=== PATIENT | female | born 1930 | race Caucasian/White ===

== ENCOUNTER 2016-05-06 05:35 | Inpatient (IN) | payer OTHER ==
[~2016-05-06] VITALS: Ht 162.6 cm; Wt 83.9 kg
[2016-05-06] MEDS ORDERED: GLIP10TA11 PO (06:43)
[2016-05-06] MEDS ORDERED: MELO15TA13 PO (06:43)
[2016-05-06] MEDS ORDERED: LOVA40TA75 PO (06:43)
[2016-05-06] MEDS ORDERED: LISI10TA5 PO (06:43)
[2016-05-06] MEDS ORDERED: GLU500 PO (06:43)
[2016-05-06] MEDS ORDERED: METO25TA6 PO (06:43)
[2016-05-06] MEDS ORDERED: LR 1,000 ML IV SCH (08:39)
[2016-05-06] MEDS ORDERED: MORPHINE 4 MG/ML INJ. SYRINGE IVP PRN ×3 (08:45)
[2016-05-06] MEDS ORDERED: METOCLOPRAMIDE HCL 10 MG/2 ML VIAL IVP PRN (08:45)
[2016-05-06 11:05] VITALS: BP 128/71; PULSE 68; PULSE 70; RESP 18; TEMP 98.2; TEMP 98.5; O2SAT 95
--- NOTE | 2016-05-06 11:05 | NUR ---
post op admission: received report from jd at bedside,patient in the room.post op vital signs taken,afebrile. daughter at bedside. mid abdominal incision dry and intact.with binder on.on o2 3l/nc,good saturation. suh draining to clear urine. with bilateral ilya draining to reddish color. continue to monitor.
[2016-05-06] MEDS ORDERED: HYDROcodone/ACETAMIN 5-325 MG TAB (NORCO/ VICODIN) PO PRN (11:15)
[2016-05-06] MEDS ORDERED: HYDROmorphone 1 MG INJ. 1 MG/ML AMPUL IVP PRN (11:15)
--- NOTE | 2016-05-06 12:00 | NUR ---
ROUNDS: HAD SIPS OF WATER. TOLERATED.
[2016-05-06] MEDS: CEFAZOLIN 1 GM IVPB PREMIX 50 ML IV SCH ×2 (13:15→21:39)
--- NOTE | 2016-05-06 14:00 | NUR ---
ROUNDS: RESTING. NO COMPLAINED MADE. CALL LIGHT WITH IN REACH.
--- NOTE | 2016-05-06 16:00 | NUR ---
ROUNDS; STABLE. NO ACTIVE BLEEDING NOTED FROM THE MID ABD INCISION.ABDOMINAL BINDER ON AT ALL TIMES.
[2016-05-06] MEDS: D5/0.45 NS 1,000 ML IV SCH (17:15)
[2016-05-06] MEDS: ACETAMINOPHEN 325 MG TABLET PO PRN (17:16)
[2016-05-06 17:28] VITALS: BP 122/76; PULSE 84; RESP 18; TEMP 97; O2SAT 95
[2016-05-06 17:31] VITALS: BP 122/76; PULSE 76
--- NOTE | 2016-05-06 18:30 | NUR ---
CLOSING NOTES: EMPTIED BOTH FRANKIE DRAINS AND RECORDED. MID ABD INCISION,DRESSING DRY AND INTACT,BINDER ON .ALVAREZ IN SITU.CALL LIGHT WITH IN REACH. STABLE.
--- NOTE | 2016-05-06 19:35 | NUR ---
INITIAL NOTE Patient resting on the bed. Denied of pain. Respiration even and unlabored. No acute distress. AO x 4. Skin warm and dry to touch. IV intact to left wrist, no redness, no swelling, no drainage. On D5 1/2NS at 100ml/hr, infusing well. F/C intact, drain gravity with yellow urine. Bilateral FRANKIE drains intact to abdomen area, mid abdomen incision intact with clean and dry dressing. Abdomen binder in placed. Discussed the safety issue, use call light when need help, use incentive spirometry when awake, and plan of care, verbally understanding. Safety measure maintained. Call light within reached. Bed in low position, bed alarm on, side rails up. Will continue to monitor.
[2016-05-06 19:55] VITALS: BP 141/76; PULSE 92; RESP 18; TEMP 98.1; O2SAT 95
--- NOTE | 2016-05-06 21:45 | NUR ---
ROUND Patient resting on the bed comfortable. No acute distress. Respiration even and unlabored. Safety measure maintained. Call light within reached. Bed in low position, bed alarm on, side rails up. Will continue to monitor.
--- NOTE | 2016-05-06 23:30 | NUR ---
ROUND Patient resting on the bed with eyes closed. Respiration even and unlabored. No acute distress. Safety measure maintained. Bed in low position, bed alarm on, side rails up. Call light within reached. Continue to monitor.
[2016-05-07] MEDS: ACETAMINOPHEN 325 MG TABLET PO PRN (00:13)
--- NOTE | 2016-05-07 00:13 | NUR ---
TYLENOL GIVEN Patient c/o back pain 05/09, Tylenol 650mg PO given as ordered. No acute distress. Safety measure maintained. Call light within reached. Continue to monitor.
[2016-05-07 00:29] VITALS: BP 141/75; PULSE 94; RESP 16; TEMP 97.8; O2SAT 96
--- NOTE | 2016-05-07 01:45 | NUR ---
ROUND Patient resting on the bed with eyes closed. No acute distress. Bed in low position, bed alarm on, side rails up. Call light within reached. Continue to monitor.
--- NOTE | 2016-05-07 03:10 | NUR ---
ROUND Patient resting on the bed with eyes closed. No acute distress. Safety measure maintained. Call light within reached. Continue to monitor.
[2016-05-07] MEDS: D5/0.45 NS 1,000 ML IV SCH ×3 (03:53→23:59)
[2016-05-07 04:25] VITALS: BP 121/65; PULSE 85; RESP 18; TEMP 98.4; O2SAT 95
--- NOTE | 2016-05-07 05:00 | NUR ---
ROUND Patient resting on the bed comfortable. Respiration even and unlabored. No acute distress. Safety measure maintained. Call light within reached. Continue to monitor.
--- NOTE | 2016-05-07 06:45 | NUR ---
CLOSING NOTE Patient resting on the bed. Respiration even and unlabored. No acute distress. Skin warm and dry to touch. IV intact to left wrist, no redness, no swelling, IVF infusing well. F/C intact, drain gravity with yellow urine. Bilateral FRANKIE drains intact to abdomen area, mid abdomen incision intact with clean and dry dressing. Abdomen binder in placed. All needs met. Hourly rounding during shift. Safety measure maintained. Call light within reached. Bed in low position, bed alarm on, side rails up. Will endorse to morning shift nurse.
[2016-05-07 06:54] LABS: ALANINE AMINOTRANSFERASE 16 U/L (12-78); ANION GAP 5 (5-15); ASPARTATE AMINOTRANSFERASE 13 U/L (10-37); CHLORIDE 100 mmol/L (98-107); CREATININE 1.06 mg/dL (0.55-1.30); GLUCOSE 180 mg/dL (70-99); POTASSIUM 4.3 mmol/L (3.5-5.1); SODIUM SERUM 133 mmol/L (136-145); TOTAL BILIRUBIN 0.5 mg/dL (0.0-1.0); TOTAL PROTEIN, SERUM 6.2 g/dL (6.4-8.3); UREA NITROGEN, BLOOD 18 mg/dL (8-21)
--- NOTE | 2016-05-07 07:10 | NUR ---
RECEIVED THE CALL FROM DR. TURCIOS, REINALDO Received the call from Dr. Turcios with order D/C F/C and advance diet to mechanical soft. Order read back and okay to MD. Reported to MD patient only c/o back pain last night, Tylenol 650mg PO given. Left FRANKIE drain 40ml, and right FRANKIE drain 10ml with red color output during head transfer clerk. MD stated that the goal is discharge home today. will endorse to morning shift nurse.
--- NOTE | 2016-05-07 07:35 | NUR ---
am rounds: received pt in the bed. awake,alert and oriented x4. ivf on going at left wrist intact.on o2 2l/nc.good saturation. with abdominal incision dressing dry and intact,abdominal binder on at all times. with bilateral ilya drains to moderate reddish color.call light with in reach. needs attended to.
--- NOTE | 2016-05-07 07:46 | NUR ---
Nutrition Update Irvin Scale 18 noted. Pt admitted for ventral hernia without obstruction or gangrene. Diet: CCHO, mechanical soft BMI: 31.8 kg/m2 RD to follow per nutrition care standards.
[2016-05-07 08:03] VITALS: BP 147/83; PULSE 85; RESP 20; TEMP 99.2; O2SAT 93
[2016-05-07] MEDS: ONDANSETRON HCL 4 MG/2 ML VIAL IVP PRN ×4 (08:10→21:05)
--- NOTE | 2016-05-07 08:15 | NUR ---
NAUSEA: C/O NAUSEA AND VOMITING AND DUE IV ZOFRAN GIVEN PER REQUEST.
--- NOTE | 2016-05-07 08:18 | NUR ---
KIM: WHIT ALVAREZ ORDERED.
[2016-05-07] MEDS ORDERED: MELOXICAM 7.5 MG TABLET PO SCH (09:00)
[2016-05-07] MEDS ORDERED: METOPROLOL TARTRATE 25 MG TABLET PO ONE (10:30)
[2016-05-07] MEDS ORDERED: metFORMIN HCL 500 MG TABLET PO ONE (10:30)
[2016-05-07] MEDS ORDERED: MELOXICAM 7.5 MG TABLET PO ONE (10:30)
[2016-05-07] MEDS ORDERED: LISINOPRIL 10 MG TABLET (PRINIVIL) PO ONE (10:30)
[2016-05-07] MEDS ORDERED: GLUCOSE 15 GM GEL (in 37.5 GM TUBE) PO PRN ×2 (11:30)
[2016-05-07] MEDS ORDERED: DEXTROSE 50%-WATER 50 ML DISP.SYRIN IVP PRN ×2 (11:30)
[2016-05-07] MEDS: METOPROLOL TARTRATE 25 MG TABLET PO SCH (11:31)
--- NOTE | 2016-05-07 11:35 | NUR ---
blood sugar: blood sugar taken,insulin to follow per sliding scale.
--- NOTE | 2016-05-07 11:35 | NUR ---
rn notes: insulin not given,patient vomited,not able to take on food.
[2016-05-07 12:47] VITALS: BP 145/81; PULSE 59; RESP 19; TEMP 97.9; O2SAT 95
[2016-05-07] MEDS: KETOROLAC TROMETHAMINE 15 MG VIAL IVP PRN ×2 (13:11→21:50)
--- NOTE | 2016-05-07 13:16 | NUR ---
pain meds: complained of lower back pain and due iv pain meds given per request.zofran iv given prior to pain meds.
--- NOTE | 2016-05-07 13:30 | NUR ---
VOID: VOIDED AFTER ALVAREZ REMOVED.
[2016-05-07] MEDS ORDERED: NS IRRIG SOLN 1000 ML IR ONE (14:00)
[2016-05-07] MEDS ORDERED: NEOSTIGMINE METHYLSULFATE 1 MG/ML, 10 ML VIAL ONE (14:00)
[2016-05-07] MEDS ORDERED: fentaNYL CITRATE 250 MCG/5 ML AMP ONE (14:00)
[2016-05-07] MEDS ORDERED: KETOROLAC TROMETHAMINE 30 MG VIAL ONE (14:00)
[2016-05-07] MEDS ORDERED: ROCURONIUM BROMIDE 10 MG/ML (ZEMURON) ONE (14:00)
[2016-05-07] MEDS ORDERED: MIDAZOLAM HCL 5 MG/5 ML VIAL ONE (14:00)
[2016-05-07] MEDS ORDERED: CEFAZOLIN 2 GM IVPB PREMIX 50 ML IV ONE (14:00)
[2016-05-07] MEDS ORDERED: NORMAL SALINE 10 ML VIAL ONE (14:00)
[2016-05-07] MEDS ORDERED: LR 1,000 ML IV.SOLN IV ONE (14:00)
[2016-05-07] MEDS ORDERED: GLYCOPYRROLATE 0.2 MG/ML VIAL ONE (14:00)
[2016-05-07] MEDS ORDERED: BUPIVACAINE LIPOSOME/PF 266 MG/20 ML VIAL INFIL ONE (14:00)
[2016-05-07] MEDS ORDERED: SEVOFLURANE 15 MIN GAS INH ONE (14:00)
[2016-05-07] MEDS ORDERED: PROPOFOL 200MG/ 20ML VIAL (DIPRIVAN) IV ONE (14:00)
[2016-05-07] MEDS ORDERED: ONDANSETRON HCL 4 MG/2 ML VIAL ONE (14:00)
--- NOTE | 2016-05-07 14:27 | NUR ---
rounds: sleeping during rounds. stable. daughter at bedside.
--- NOTE | 2016-05-07 15:25 | NUR ---
PHYSICAL THERAPY CO-SIGN The Physical Therapy Progress Notes documented by Supervisor Sawmill have been reviewed. I CONCUR W/FLOWER GRADER; CONT PER TX PLAN Reviewed/Co-Signed by: Grecia Lucia PT Documentation Done by: CHANDRA MONET FLOWER GRADER Addendum: 05/07/16 at 1527 by Grecia Lucia PT Amended: Links added.
[2016-05-07 16:25] VITALS: BP 136/80; PULSE 79; RESP 19; TEMP 97.8; O2SAT 92
--- NOTE | 2016-05-07 16:42 | NUR ---
vomits: pt coughing,had moderate amount brownish liquidy.
--- NOTE | 2016-05-07 17:00 | NUR ---
blood sugar: blood sugar taken,no insulin coverage,patient can not tolerate food.
--- NOTE | 2016-05-07 17:05 | NUR ---
surgeon paged: called dr stock for patient had another vomits brownish color liquidy with phlegm after coughing.left message c/o exchange,with orders for kub and cbc stat.
[2016-05-07] MEDS ORDERED: metFORMIN HCL 500 MG TABLET PO SCH (18:00)
[2016-05-07] MEDS: LOVASTATIN 20 MG TABLET PO SCH (18:00)
--- NOTE | 2016-05-07 18:00 | NUR ---
surgeon paged: spoke wtih dr stock and relayed kub results,start slowly on clear liquids.
[2016-05-07 18:01] LABS: BASOPHILS % (AUTO) 0.2 % (0.0-2.0); EOSINOPHILS % (AUTO) 0.2 % (0.0-4.0); HEMATOCRIT 31.4 % (36-48); HEMOGLOBIN 10.6 g/dL (12.0-16.0); LYMPHOCYTES # (AUTO) 0.9 K/uL (1.0-5.5); LYMPHOCYTES % (AUTO) 5.4 % (20.5-51.5); MEAN CORPUSCULAR HEMOGLOBIN 30 pg (27-31); MEAN CORPUSCULAR HGB CONC 34 % (32-36); MEAN CORPUSCULAR VOLUME 87 fL (79.0-98.0); MONOCYTES # (AUTO) 0.9 K/uL (0.0-1.0); MONOCYTES % (AUTO) 5.7 % (1.7-9.3); NEUTROPHILS # (AUTO) 14.1 K/uL (1.8-7.7); NEUTROPHILS % (AUTO) 88.5 % (40.0-70.0); PLATELET COUNT (AUTO) 223 K/uL (130-430); RED CELL DISTRIBUTION WIDTH 13.5 % (9.0-15.0); WHITE BLOOD COUNT (AUTO) 15.9 K/uL (4.8-10.8)
--- NOTE | 2016-05-07 19:00 | NUR ---
closing notes: patient stable and with mild nausea noted. daughter at bedside. call light with in reach.continue to monitor.
--- NOTE | 2016-05-07 19:25 | NUR ---
INITIAL NOTE Patient resting on the bed. Denied of pain. Respiration even and unlabored. No acute distress. AO x 4. Skin warm and dry to touch. IV intact to left wrist, no redness, no swelling, no drainage. On D5 1/2NS at 100ml/hr, infusing well. Bilateral FRANKIE drains intact to abdomen area, mid abdomen incision intact with clean and dry dressing. Abdomen binder in placed. Daughter at bedside. Discussed the safety issue, use call light when need help, use incentive spirometry when awake, and plan of care, verbally understanding. Safety measure maintained. Call light within reached. Bed in low position, bed alarm on, side rails up. Will continue to monitor.
[2016-05-07 20:00] VITALS: BP 154/94; PULSE 89; RESP 20; TEMP 97.4; O2SAT 92
--- NOTE | 2016-05-07 20:10 | NUR ---
ASSISTED PATIENT SIT ON THE CHAIR Per patient requested to sit on the chair. Assisted patient to sit on the chair at bedside. No acute distress. Respiration even and unlabored. Safety measure maintained. Call light within reached. Daughter at bedside. Continue to monitor.
[2016-05-07] MEDS: INSULIN REGULAR, HUMAN 100 UNITS/ML, 10 ML VIAL (novoLIN R) SUBCUT PRN (20:49)
--- NOTE | 2016-05-07 21:05 | NUR ---
ZOFRAN GIVEN Patient vomited with brownish color emesis. Zofran 4mg IVP given as ordered. No acute distress. Patient still sitting on the chair. Ice chip provided. Safety measure maintained. Call light within reached. Will continue to monitor.
--- NOTE | 2016-05-07 21:50 | NUR ---
TORADOL GIVEN Patient c/o back pain 08/09, Toradol 15mg IVP given as ordered. No acute distress. Assisted patient back to bed. Call light within reached. Bed in low position, bed alarm on, side rails up. Continue to monitor.
--- NOTE | 2016-05-07 23:40 | NUR ---
ROUND Patient resting on the bed with eyes closed. No acute distress. Respiration even and unlabored. Safety measure maintained. Call light within reached. Continue to monitor.
[2016-05-08] VITALS (7 sets, daily range): BP systolic 117–170; BP diastolic 53–85; PULSE 77–113; RESP 17–20; TEMP 96.9–97.7; O2SAT 91–96
--- NOTE | 2016-05-08 01:44 | NUR ---
ROUND Patient sleeping at this time. No acute distress. Respiration even and unlabored. Safety measure maintained. Bed in low position, bed alarm on, side rails up. Call light within reached. Continue to monitor.
--- NOTE | 2016-05-08 03:20 | NUR ---
ROUND Patient sleeping comfortable. No acute distress. Respiration even and unlabored. Safety measure maintained. Bed in low position, bed alarm on, side rails up. Call light within reached. Continue to monitor.
--- NOTE | 2016-05-08 05:00 | NUR ---
ROUND Patient resting on the bed with eyes closed. No acute distress. Respiration even and unlabored. Safety measure maintained. Bed in low position, bed alarm on, side rails up. Call light within reached. Continue to monitor.
--- NOTE | 2016-05-08 06:59 | NUR ---
CLOSING NOTE Patient resting on the bed. Respiration even and unlabored. No acute distress. IV intact to left wrist, no redness, no swelling, IVF infusing well. Bilateral FRANKIE drains intact to abdomen area, mid abdomen incision intact with clean and dry dressing. Abdomen binder in placed. Assisted to use bedpan during shift. All needs met. Hourly rounding during shift. Safety measure maintained. Call light within reached. Bed in low position, bed alarm on, side rails up. Will endorse to morning shift nurse.
--- NOTE | 2016-05-08 07:30 | NUR ---
rn notes: patient is aaox 4. afebrile. vss stable. lungs bilaterally diminished at the bases. abdomen soft has dressing on it. dry/intact. no bleeding noted. has j p drain right and left with drainage serosanguinous noted. has iv access on the left forearm #20.D51/2Ns at 100cc/hr infusing on well. call lights within reach. safety measures maintained. bed in low position. informed patient to call for assistance. has abdominal binder with abdominal dressing in placed. dry/intact. no bleeding noted.
--- NOTE | 2016-05-08 08:00 | NUR ---
patient is stable. no pain noted.
[2016-05-08] MEDS: METOPROLOL TARTRATE 25 MG TABLET PO SCH (09:00)
[2016-05-08] MEDS: ONDANSETRON HCL 4 MG/2 ML VIAL IVP PRN (09:03)
--- NOTE | 2016-05-08 09:15 | NUR ---
due medication given at this time.made comfortable.
[2016-05-08] MEDS ORDERED: MAG-AL HYDROX/SIMETH 30 ML UDC PO ONE (10:00)
--- NOTE | 2016-05-08 10:00 | NUR ---
rt j p drain emptied 10cc and the left ilya drain 20cc serosanguinous noted.
[2016-05-08] MEDS: PANTOPRAZOLE SODIUM 40 MG/VIAL (PROTONIX) IVP SCH (10:07)
[2016-05-08] MEDS: LISINOPRIL 10 MG TABLET (PRINIVIL) PO SCH (10:09)
[2016-05-08] MEDS: D5/0.45 NS 1,000 ML IV SCH ×2 (10:10→20:51)
[2016-05-08] MEDS: MELOXICAM 7.5 MG TABLET PO SCH (10:10)
[2016-05-08] MEDS: INSULIN REGULAR, HUMAN 100 UNITS/ML, 10 ML VIAL (novoLIN R) SUBCUT PRN ×3 (11:44→21:44)
[2016-05-08] MEDS ORDERED: METOPROLOL TARTRATE 25 MG TABLET PO ONE (11:45)
--- NOTE | 2016-05-08 12:00 | NUR ---
latest bs is 228mg/dl. coverage given at this time. eat like 5-10 of food on the tray
--- NOTE | 2016-05-08 12:00 | NUR ---
sitting on the chair. no nausea noted. no pain noted.
--- NOTE | 2016-05-08 14:00 | NUR ---
patient is stable. no pain nor nausea noted.
--- NOTE | 2016-05-08 15:00 | NUR ---
PHYSICAL THERAPY CO-SIGN The Physical Therapy Progress Notes documented by Power Shovel Mechanic have been reviewed. Reviewed/Co-Signed by: Mitzy Chen, PT Documentation Done by: Syed Kim PTA I concur with the documentation of this CONSULTING SOFTWARE ENGINEER. Plan: continue PT as per plan of care. Addendum: 05/09/16 at 0858 by Mitzy Chen PT Amended: Links added.
--- NOTE | 2016-05-08 15:25 | NUR ---
patient is asleep at this time.no nausea nor vomitting noted. family is at the bedside.
--- NOTE | 2016-05-08 17:30 | NUR ---
latest bs is 140mg/dl. no coverage given at this time.
[2016-05-08] MEDS: LOVASTATIN 20 MG TABLET PO SCH (17:32)
--- NOTE | 2016-05-08 18:00 | NUR ---
refused to have mevacor tablet.
[2016-05-08] MEDS: KETOROLAC TROMETHAMINE 15 MG VIAL IVP PRN (18:41)
--- NOTE | 2016-05-08 18:41 | NUR ---
complained of back pain. toradol 15mg iv given. made comfortable.
--- NOTE | 2016-05-08 19:00 | NUR ---
abdominal dressing with abdominal binder dry and intact. bed in low position. patient is asleep. nor pain nor distress noted.
--- NOTE | 2016-05-08 19:32 | NUR ---
sbar report given to incoming nurse Isamar SUAREZ
--- NOTE | 2016-05-08 20:00 | NUR ---
PM Shift Assessment Received patient lying in bed, AAO x4, no acute distress noted, family is at the bedside. Assessment complete, vital signs stable, patient states pain is tolerable at this time. Pain management education provided, patient verbalized understanding. IV noted to left wrist, IV fluids infusing well, no redness or swelling noted to IV site. Abdominal dressing noted with abdominal binder in place. FRANKIE drain noted on right and another on left, both with scant serosanguineous drainage noted. Bedside commode noted at the bedside, instructed patient to call for assistance out of bed when she needs to get up, she verbalized understanding. Incentive spirometer noted at the bedside, education provided on the importance of use 10x/hour while awake, patient verbalized understanding and is able to demonstrate correct use up to 750mL of inspired air. Plan of care discussed with patient and daughter at the bedside, they verbalized understanding. Patient is verbally able to make needs known and encouraged to do so. Call light is within reach, all fall and safety precautions in place, will continue to monitor for change in patient status.
--- NOTE | 2016-05-08 22:09 | NUR ---
RN Rounds Patient is resting quietly in bed, no acute distress noted. Patient states pain is tolerable at this time. Dr Turcios at the bedside earlier. Blood sugar was assessed, patient refused insulin at this time, states she did not eat to much today, refused bedtime snack at this time. Reminded to call for assistance as needed, she verbalized understanding. Call light is within reach, all fall and safety precautions in place, will continue to monitor.
[2016-05-09] VITALS (7 sets, daily range): BP systolic 128–188; BP diastolic 64–85; PULSE 70–92; RESP 16–18; TEMP 97.4–98.9; O2SAT 92–95; Ht 162.6 cm; Wt 83.9 kg
--- NOTE | 2016-05-09 00:13 | NUR ---
RN Rounds Patient is sleeping but easily arousable, no acute distress noted. IV fluids infusing well. Call light is within reach, all fall and safety precautions in place, will continue to monitor.
--- NOTE | 2016-05-09 02:27 | NUR ---
RN Rounds Patient is sleeping, respirations are even and unlabored, no acute distress noted. No non-verbal signs of pain noted at this time. Call light is within reach, all fall and safety precautions in place, will continue to monitor.
--- NOTE | 2016-05-09 04:35 | NUR ---
RN Rounds Patient is resting quietly in bed, no acute distress noted. Assisted up to bedside commode and safely back to bed. IV fluids infusing well. Call light is within reach, all fall and safety precautions in place, will continue to monitor.
[2016-05-09] MEDS: D5/0.45 NS 1,000 ML IV SCH (06:10)
[2016-05-09] MEDS: INSULIN REGULAR, HUMAN 100 UNITS/ML, 10 ML VIAL (novoLIN R) SUBCUT PRN ×3 (06:13→17:05)
[2016-05-09 06:36] LABS: ANION GAP 3 (5-15); CHLORIDE 101 mmol/L (98-107); CREATININE 0.93 mg/dL (0.55-1.30); GLUCOSE 176 mg/dL (70-99); POTASSIUM 3.8 mmol/L (3.5-5.1); SODIUM SERUM 134 mmol/L (136-145); UREA NITROGEN, BLOOD 11 mg/dL (8-21)
[2016-05-09 06:38] LABS: BASOPHILS % (AUTO) 0.3 % (0.0-2.0); EOSINOPHILS # (AUTO) 0.5 K/uL (0.0-0.4); EOSINOPHILS % (AUTO) 5.1 % (0.0-4.0); HEMATOCRIT 28.5 % (36-48); HEMOGLOBIN 9.4 g/dL (12.0-16.0); LYMPHOCYTES # (AUTO) 1.4 K/uL (1.0-5.5); LYMPHOCYTES % (AUTO) 14.3 % (20.5-51.5); MEAN CORPUSCULAR HEMOGLOBIN 29 pg (27-31); MEAN CORPUSCULAR HGB CONC 33 % (32-36); MEAN CORPUSCULAR VOLUME 87 fL (79.0-98.0); MONOCYTES # (AUTO) 0.9 K/uL (0.0-1.0); MONOCYTES % (AUTO) 9.1 % (1.7-9.3); NEUTROPHILS # (AUTO) 6.7 K/uL (1.8-7.7); NEUTROPHILS % (AUTO) 71.2 % (40.0-70.0); PLATELET COUNT (AUTO) 198 K/uL (130-430); RED BLOOD CELL COUNT(AUTO) 3.28 MIL/uL (4.2-6.2); RED CELL DISTRIBUTION WIDTH 13.5 % (9.0-15.0); WHITE BLOOD COUNT (AUTO) 9.5 K/uL (4.8-10.8)
--- NOTE | 2016-05-09 07:19 | NUR ---
Closing Notes Patient is resting quietly in bed, no acute distress noted. No complain of pain or nausea throughout shift. Blood sugar was assessed and insulin provided per sliding scale. Maintained bulb suction throughout shift to right and left abdominal FRANKIE drains. Patient is stable, all needs met throughout shift. SBAR report was endorsed to AM nurse at bedside.
--- NOTE | 2016-05-09 07:30 | NUR ---
rn notes: patient is aaox 4. afebrile. vss stable. lungs bilaterally diminished at the bases. abdomen soft non distended. has abdominal dressing dry/intact. has adamaris christina rt and left draining serosanguinous noted. has iv access on the left forearm #20 [id number] at 100c/hr infusing on well. no pain nor distress noted. call lights within reach. safety measures maintained. informed patient to call for assistance. bed in low position. has bedside commode.
--- NOTE | 2016-05-09 08:57 | NUR ---
CALLED ALISSA, COFFEE TASTER IS EITHER DR JENSEN OR DR BURKETT, RE: HEARTBURN RELIEF. SPOKE TO JOANNA
[2016-05-09] MEDS ORDERED: MAG-AL HYDROX/SIMETH 30 ML UDC PO PRN (09:15)
--- NOTE | 2016-05-09 09:17 | NUR ---
Dr Stockton called back ordered Jeremy po give one now.
[2016-05-09] MEDS: PANTOPRAZOLE SODIUM 40 MG/VIAL (PROTONIX) IVP SCH (09:28)
[2016-05-09] MEDS: LISINOPRIL 10 MG TABLET (PRINIVIL) PO SCH (09:29)
[2016-05-09] MEDS ORDERED: METOPROLOL TARTRATE 25 MG TABLET PO ONE (09:30)
[2016-05-09] MEDS: MELOXICAM 7.5 MG TABLET PO SCH (09:30)
--- NOTE | 2016-05-09 09:30 | NUR ---
due medication given at this time. made comfortable. hob elevated.
[2016-05-09] MEDS ORDERED: PANTOPRAZOLE SODIUM 40 MG TAB PO ONE (10:00)
--- NOTE | 2016-05-09 10:09 | NUR ---
spoke with pt at bedside.she is alert, indep for adls. taking orals. pain controlled. plan home today with family. lives with extended family. will follow up with Dr Turcios next week. javy bishop/catherine/farhad hcp [phone]
--- NOTE | 2016-05-09 12:15 | NUR ---
PHYSICAL THERAPY CO-SIGN The Physical Therapy Progress Notes documented by Cuff Presser have been reviewed. Reviewed/Co-Signed by: Mitzy Chen PT Documentation Done by: Syed Kim PTA I concur with the documentation of this PARTICLEBOARD FACTORY WORKER. Plan: continue P.T. as per plan of care. Addendum: 05/09/16 at 1330 by Mitzy Chen PT Amended: Links added.
--- NOTE | 2016-05-09 12:27 | NUR ---
latest bs is 199mg/dl. coverage given. made comfortable. protonix 40 gm po and maalox po given. verbalized will gonna be okay. thanks.
[2016-05-09] MEDS ORDERED: BISACODYL 10 MG/SUPPOSITORY RC ONE (14:45)
--- NOTE | 2016-05-09 15:45 | NUR ---
spoke to Dr Espinosa regarding discharge today/tonite.its okay. verbalized continue previous home medication.
[2016-05-09] MEDS ORDERED: OXYC-130 PO (15:57)
[2016-05-09] MEDS ORDERED: DOCU-144 PO (15:58)
--- NOTE | 2016-05-09 17:02 | NUR ---
latest bs is 145 mg/dl. no coverage given at this time. stable no pain. on the bedside commode
--- NOTE | 2016-05-09 18:00 | NUR ---
eating piece of chicken and soup. like 20% of food consumed
--- NOTE | 2016-05-09 19:00 | NUR ---
transition care documents given to the patient. and explained each medication indication, side effects, dosages and frequency. and return follow up with dr Turcios next week. and [facility]. needs to continue home previous medication. scds id band removed. saline lock removed.
--- NOTE | 2016-05-09 19:15 | NUR ---
daughter mariluz came and supervisor opening and picking the patient. in stable condition wheeled by Lauren Smith.
[2016-05-10] MEDS ORDERED: PANTOPRAZOLE SODIUM 40 MG TAB PO SCH (09:00)
[2016-05-10] MEDS ORDERED: METOPROLOL TARTRATE 25 MG TABLET PO SCH (09:00)
--- NOTE | 2016-05-13 09:44 | NUR ---
Discharge Follow Up Phone Call HUMAN RESOURCES ADMIN phoned patient, . Patient stated she was doing fine. She had no questions or concerns. Her drain was doing well. She will attend her follow up appointment with Dr Turcios today. She has help from her family. No further follow up calls needed.
== END 2016-05-09 19:25 | disposition home or self-care (01) | DRG 354 ==
LOC: SMU 05:35 → SDS 05:35 → SMU 12:44 → SDS 05-07 11:03 → SMU 05-07 11:07
PROVIDERS: ADMIT Surgery; ATTEND Surgery
PROC: 0WBF0ZZ Excision of Abdominal Wall, Open Approach (ICD-10-PCS; 2016-05-06)
PROC: 0WQF0ZZ Repair Abdominal Wall, Open Approach (ICD-10-PCS; principal; 2016-05-06 07:30)
DX: K43.2 Incisional hernia without obstruction or gangrene (principal); E44.1 Mild protein-calorie malnutrition; E11.22 Type 2 diabetes mellitus with diabetic chronic kidney disease; N18.2 Chronic kidney disease, stage 2 (mild); I12.9 Hypertensive chronic kidney disease with stage 1 through stage 4 chronic kidney disease, or unspecified chronic kidney disease; E78.5 Hyperlipidemia, unspecified; E03.9 Hypothyroidism, unspecified; M46.00 Spinal enthesopathy, site unspecified; H91.90 Unspecified hearing loss, unspecified ear; Z96.659 Presence of unspecified artificial knee joint; Z90.49 Acquired absence of other specified parts of digestive tract; Z98.49 Cataract extraction status, unspecified eye; Z82.3 Family history of stroke; Z83.3 Family history of diabetes mellitus; Z80.1 Family history of malignant neoplasm of trachea, bronchus and lung; Z78.9 Other specified health status; Z68.31 Body mass index [BMI] 31.0-31.9, adult
CPT/HCPCS: 36415; 74000-TC; 80048; 80053; 82962; 83735-TC; 85025; 87081; 88302; 94010; 94760; 97110-GP; 97116-GP; 97530-GP; C9113; C9290; J0690; J1815; J1885; J2250; J2405; J2704; J2710; J3010; J3490; J7120

== ENCOUNTER 2016-05-28 15:15 | Inpatient (IN) | payer OTHER ==
[2016-05-09 16:13] VITALS: Ht 162.6 cm; Wt 88.0 kg
[~2016-05-28] VITALS: Ht 162.6 cm; Wt 88.0 kg
[~2016-05-28 15:15] MED LIST: DOCU-144 PO; GLIP10TA11 PO; GLU500 PO; LISI10TA5 PO; LOVA40TA75 PO; MELO15TA13 PO; METO25TA6 PO; OXYC-130 PO
--- NOTE | 2016-05-28 15:18 | NUR ---
Patient to ER bed 4 to gown for evaluation. Side rails up. Report given to Yue SUAREZ.
[2016-05-28 15:20] VITALS: BP 115/70; PULSE 138; RESP 20; TEMP 97.7; O2SAT 96
[2016-05-28] MEDS ORDERED: NACL 0.9% 1,000 ML IV SCH (15:30)
--- NOTE | 2016-05-28 15:32 | NUR ---
ER MD Yeung at bedside for evaluation
[2016-05-28] MEDS ORDERED: ONDANSETRON HCL 4 MG/2 ML VIAL IVP ONE (15:45)
[2016-05-28] MEDS ORDERED: MELO15TA13 PO (15:45)
[2016-05-28] MEDS ORDERED: KETOROLAC TROMETHAMINE 30 MG VIAL IVP ONE (15:45)
--- NOTE | 2016-05-28 16:00 | NUR ---
transported to ct scan
--- NOTE | 2016-05-28 16:06 | NUR ---
returned back from ct scan via wheelchair
--- NOTE | 2016-05-28 16:07 | NUR ---
# 20 gauge angiocath placed to LAC. Use of asceptic technique. Opsite placed over site. Blood return noted. Blood for lab drawn from site. Flushed with 10 cc of normal saline. No evidence of infiltration noted. Patient tolerated well.
[2016-05-28 16:10] LABS: BASOPHILS % (AUTO) 0.2 % (0.0-2.0); EOSINOPHILS % (AUTO) 0.1 % (0.0-4.0); HEMOGLOBIN 12.3 g/dL (12.0-16.0); LYMPHOCYTES # (AUTO) 1.2 K/uL (1.0-5.5); MONOCYTES # (AUTO) 1.1 K/uL (0.0-1.0)
--- NOTE | 2016-05-28 16:10 | NUR ---
c/o intermitent abdominal pain, vomiting for two days.
[2016-05-28 16:14] LABS: HEMATOCRIT 37.1 % (36-48); LYMPHOCYTES % (AUTO) 8.7 % (20.5-51.5); MEAN CORPUSCULAR HEMOGLOBIN 28 pg (27-31); MEAN CORPUSCULAR HGB CONC 33 % (32-36); MEAN CORPUSCULAR VOLUME 85 fL (79.0-98.0); MONOCYTES % (AUTO) 8.1 % (1.7-9.3); NEUTROPHILS % (AUTO) 82.9 % (40.0-70.0); PLATELET COUNT (AUTO) 406 K/uL (130-430); RED BLOOD CELL COUNT(AUTO) 4.37 MIL/uL (4.2-6.2); RED CELL DISTRIBUTION WIDTH 13.2 % (9.0-15.0); WHITE BLOOD COUNT (AUTO) 13.3 K/uL (4.8-10.8)
[2016-05-28 16:24] LABS: PROTHROMBIN TIME 11.3 SECS (9.5-12.5)
[2016-05-28 16:30] LABS: ANION GAP 7 (5-15); CALCIUM 9.5 mg/dL (8.4-11.0); CHLORIDE 96 mmol/L (98-107); CREATININE 2.21 mg/dL (0.55-1.30); GLUCOSE 269 mg/dL (70-99); POTASSIUM 4.6 mmol/L (3.5-5.1); SODIUM SERUM 132 mmol/L (136-145); UREA NITROGEN, BLOOD 60 mg/dL (8-21)
[2016-05-28 16:35] LABS: ALANINE AMINOTRANSFERASE 22 U/L (12-78); ALBUMIN 3.8 g/dL (3.4-4.8); ASPARTATE AMINOTRANSFERASE 15 U/L (10-37); TOTAL BILIRUBIN 0.7 mg/dL (0.0-1.0)
--- NOTE | 2016-05-28 16:59 | NUR ---
attempted insert size 14 NGT x2 to both nostrils.pt unable to tolerated .Dr Smith informed.hold for now per Dr smith.
[2016-05-28] MEDS ORDERED: PIPERACILLIN/TAZO 3.375 GM in NS 50 ML IV ONE (17:00)
[2016-05-28] MEDS ORDERED: NACL 0.9% 1,000 ML IV ONE ×2 (17:00→17:15)
[2016-05-28] MEDS ORDERED: MORPHINE 2 MG/ML INJ. SYRINGE IVP PRN (17:00)
[2016-05-28] MEDS ORDERED: PIPERACILLIN/TAZOBACTAM 3.375 GM/VIAL (ZOSYN) IV ONE (17:11)
--- NOTE | 2016-05-28 17:43 | NUR ---
Patient will be admitted to [facility]. Admitted to unit. Will go to room . Belongings list completed. Summary report printed. Report given to .
[2016-05-28] MEDS ORDERED: DEXTROSE 50%-WATER 50 ML DISP.SYRIN IVP PRN ×2 (18:00)
[2016-05-28] MEDS ORDERED: GLUCOSE 15 GM GEL (in 37.5 GM TUBE) PO PRN ×2 (18:00)
--- NOTE | 2016-05-28 18:20 | NUR ---
ADMISSION NOTE Received patient from ER via gurney. Patient admitted with diagnosis of small bowel obstruction. Patient oriented to hospital routine, call light, toileting and safety-patient verbalized understanding.
--- NOTE | 2016-05-28 18:23 | NUR ---
CONSULTATION PAGED REASON FOR CONSULTATION:SBO WAS CONSULT CALLED?Y PERSON WHO WAS NOTIFIED:JAH CONSULTING PHYSICIAN:KAVITHA LOCO CUTTER OPERATOR HELPER SPECIALTY:SURGEON CUTTER OPERATOR HELPER PHONE NUMBER:[phone]
[2016-05-28 18:52] VITALS: BP 129/85; PULSE 115; RESP 17; TEMP 97.8; O2SAT 94
[2016-05-28] MEDS ORDERED: KETOROLAC TROMETHAMINE 15 MG VIAL IVP PRN (19:15)
--- NOTE | 2016-05-28 19:44 | NUR ---
MRSA Screen MRSA culture from both nares collected and taken to the lab.
[2016-05-28 20:00] VITALS: BP 119/87; PULSE 103; RESP 18; TEMP 97.8; O2SAT 93
--- NOTE | 2016-05-28 20:00 | NUR ---
Initial PM Assessment Pt was received lying in bed fully AAO x4. Speech is clear and pt is able to make her needs known. No c/o pain or discomfort at this time. Skin is warm and dry to touch. No signs or symptoms of hypoglycemia or hyperglycemia noted. Pt was instructed on nothing by mouth and pt verbalized understanding. IVF is infusing well in LAC without any signs of infiltration at the IV site. Fall and safety precautions are in place. Bed is in the lowest and locked positions. Call light is with pt and bed alarm is on. Pt was instructed to call for assistance as needed and pt verbalized understanding.
--- NOTE | 2016-05-28 20:12 | NUR ---
Urine Specimen Pt voided clear yellowish urine per bedpan. Urine specimen was collected and taken to the lab for UA.
[2016-05-28 20:46] LABS: BILIRUBIN,URINE NEGATIVE (NEGATIVE); BLOOD, URINE NEGATIVE (NEGATIVE); CLARITY/URINE HAZY (CLEAR); COLOR,URINE YELLOW (YELLOW); GLUCOSE,URINE NEGATIVE (NEGATIVE); KETONES,URINE NEGATIVE (NEGATIVE); LEUKOCYTE ESTERASE ,URINE NEGATIVE (NEGATIVE); NITRITE, URINE NEGATIVE (NEGATIVE); PH,URINE 5.5 (5.0-8.0); PROTEIN URINE TRACE (NEGATIVE); UROBILINOGEN,URINE 0.2 (0.2-1.0)
[2016-05-28 20:53] LABS: BACTERIA,URINE FEW /HPF (None Seen); MUCUS,URINE None Seen /LPF (None Seen); RBC,URINE NONE SEEN /HPF (0-3)
--- NOTE | 2016-05-28 21:05 | NUR ---
Nausea and Vomiting Pt severely nauseated and she vomited approximately 75ml of greenish fluid. Aspiration precaution taken. Oral care given. Pt and family informed Attending Physician will be paged for nausea/vomiting medication.
--- NOTE | 2016-05-28 21:06 | NUR ---
MD HECK CALLED [facility] AT [phone]ARGHISTI TYSON NARINE KENNEL HELPER.
--- NOTE | 2016-05-28 21:15 | NUR ---
Dr. Dank Weems called backed and new order obtained for nausea/vomiting medication. Dr. Weems also recommended attempting insertion of NGT again. Two attempts of NGT insertion in ER failed.
--- NOTE | 2016-05-28 21:30 | NUR ---
Dr. Tam Turcios here to see pt and was given update per his request. He stated NGT is pt's best solution at this time.
--- NOTE | 2016-05-28 21:35 | NUR ---
CONSULTATION PAGED REASON FOR CONSULTATION:SMALL BOWEL OBSTRUCTION WAS CONSULT CALLED?Y PERSON WHO WAS NOTIFIED:JAH CONSULTING PHYSICIAN:MARY DEAL (HALLIE ORELLANA MANAGER OF FINANCIAL REPORTING) OIL FIELD ROUSTABOUT SPECIALTY:GI OIL FIELD ROUSTABOUT PHONE NUMBER:[phone]
--- NOTE | 2016-05-28 21:40 | NUR ---
NGT Insertion Attempt RN attempted to insert NGT, but pt very apprehensive and kept on vomiting large amount of greenish liquid while NGT was being inserted in left nare. After advancing NGT about 6 inches, pt became more apprehensive and kept on vomiting greenish fluid. Pt then refused insertion of the NGT further down. Pt stated, "I don't want it. I am not going through with this anymore." Dr. Turcios was standing by the Nurses' Station and he was informed pt refused the NGT. Dr. Turcios stated he heard all the noises. He also stated the NGT will probably be inserted by a Director Financial Analysis who may be performing an endoscopy. He recommended notifying Dr. Weems about pt's refusal of NGT insertion.
--- NOTE | 2016-05-28 21:47 | NUR ---
MD HECK CALLED [facility] AT [phone]ARGHISTI TYSON NARINE PRE SALES TECHNICAL ENGINEER.
[2016-05-28] MEDS: ONDANSETRON HCL 4 MG/2 ML VIAL IVP PRN (21:50)
--- NOTE | 2016-05-28 21:50 | NUR ---
Nausea/Vomiting Medication Zofran 4mg was given IVP for severe nausea and vomiting with relief.
--- NOTE | 2016-05-28 21:55 | NUR ---
Dr. Dank Weems called back and was informed pt refused NGT after failed attempt of insertion. No new orders given.
--- NOTE | 2016-05-28 22:15 | NUR ---
Dr. Dawit Pastor called regarding GI consult and stated pt will be seen tomorrow.
--- NOTE | 2016-05-28 23:22 | NUR ---
Blood Sugar Accucheck 217 and no Insulin coverage given due to NPO status. Skin remains warm and dry to touch. Pt is resting comfortably in bed. She denies pain, nausea or vomiting at this time. IVF is infusing well in [facility]. Call light is with pt and bed alarm is on.
[2016-05-28] MEDS: PIPERACILLIN/TAZO 3.375/DEX-IS 50 ML IV SCH (23:23)
[2016-05-28 23:47] VITALS: BP 138/80; PULSE 116; RESP 18; TEMP 96.6; O2SAT 92
--- NOTE | 2016-05-29 00:15 | NUR ---
Rounds Sleeping/resting, no SOB, no chest pain, no grimacing. IV at L AC, continued 1/2 NS @ 100 ml/hr. Bed at lowest position, call light within reach, will continue to monitor patient. Addendum: 05/30/16 at 0212 by Ruben Marques RN Wrong entry. Should be dated on 05/30/2016. [place]
--- NOTE | 2016-05-29 01:30 | NUR ---
Rounds Pt is sleeping comfortably in bed. IVF is infusing well in [facility]. Call light is with pt and bed alarm is on.
--- NOTE | 2016-05-29 03:30 | NUR ---
Rounds Pt is sleeping without any distress noted. IVF is infusing well and call light is with pt.
--- NOTE | 2016-05-29 04:15 | NUR ---
Bowel Movement Pt passed large amount of formed and soft brownish stools per bedpan. Su care given and bed linen change done.
[2016-05-29 04:40] VITALS: BP 120/78; PULSE 112; RESP 18; TEMP 97.2; O2SAT 93
[2016-05-29] MEDS: 0.45% NACL 1,000 ML IV SCH ×4 (04:45→21:21)
--- NOTE | 2016-05-29 05:20 | NUR ---
Bowel Movement Pt passed large amount of watery brownish stool per bedpan. Su care given.
[2016-05-29] MEDS: ONDANSETRON HCL 4 MG/2 ML VIAL IVP PRN (05:30)
--- NOTE | 2016-05-29 05:30 | NUR ---
Nausea Medication Zofran 4mg was given IV for c/o nausea with good effect. No emesis noted.
[2016-05-29] MEDS: PIPERACILLIN/TAZO 3.375/DEX-IS 50 ML IV SCH ×3 (05:32→17:25)
--- NOTE | 2016-05-29 05:41 | NUR ---
Blood Sugar Accucheck 146 and no sliding scale Insulin needed. Skin remains warm and dry to touch.
[2016-05-29 06:27] LABS: BASOPHILS % (AUTO) 0.2 % (0.0-2.0); EOSINOPHILS % (AUTO) 0.2 % (0.0-4.0); HEMATOCRIT 29.3 % (36-48); HEMOGLOBIN 9.9 g/dL (12.0-16.0); LYMPHOCYTES # (AUTO) 1.1 K/uL (1.0-5.5); LYMPHOCYTES % (AUTO) 10.9 % (20.5-51.5); MEAN CORPUSCULAR HEMOGLOBIN 29 pg (27-31); MEAN CORPUSCULAR HGB CONC 34 % (32-36); MEAN CORPUSCULAR VOLUME 86 fL (79.0-98.0); MONOCYTES # (AUTO) 1.3 K/uL (0.0-1.0); MONOCYTES % (AUTO) 12.9 % (1.7-9.3); NEUTROPHILS # (AUTO) 7.5 K/uL (1.8-7.7); NEUTROPHILS % (AUTO) 75.8 % (40.0-70.0); PLATELET COUNT (AUTO) 283 K/uL (130-430); RED BLOOD CELL COUNT(AUTO) 3.41 MIL/uL (4.2-6.2); RED CELL DISTRIBUTION WIDTH 13.9 % (9.0-15.0); WHITE BLOOD COUNT (AUTO) 9.9 K/uL (4.8-10.8)
--- NOTE | 2016-05-29 06:37 | NUR ---
Closing Note Pt is awake and resting comfortably in bed. All pt's needs were attended to. No fall or injury noted this shift. Will endorse to day shift nurse.
[2016-05-29 06:38] LABS: ALANINE AMINOTRANSFERASE 17 U/L (12-78); ALBUMIN 2.9 g/dL (3.4-4.8); ANION GAP 5 (5-15); ASPARTATE AMINOTRANSFERASE 12 U/L (10-37); CHLORIDE 104 mmol/L (98-107); GLUCOSE 164 mg/dL (70-99); POTASSIUM 4.5 mmol/L (3.5-5.1); SODIUM SERUM 138 mmol/L (136-145); TOTAL BILIRUBIN 0.6 mg/dL (0.0-1.0); TOTAL PROTEIN, SERUM 6.1 g/dL (6.4-8.3); UREA NITROGEN, BLOOD 62 mg/dL (8-21)
--- NOTE | 2016-05-29 07:30 | NUR ---
Initial Note Patient sleeping at this time. No acute distress noted. Respirations even and unlabored.
[2016-05-29 08:00] VITALS: BP 137/75; PULSE 93; RESP 18; TEMP 98.1; O2SAT 93
[2016-05-29] MEDS ORDERED: GASTROGRAFIN 120 ML ONE (08:55)
--- NOTE | 2016-05-29 09:07 | NUR ---
Notes Patient taken for small bowel follow through. No acute distress noted.
--- NOTE | 2016-05-29 11:14 | NUR ---
Notes Patient back in room. No acute distress noted.
[2016-05-29 12:00] VITALS: BP 136/71; PULSE 95; RESP 21; TEMP 97.6; O2SAT 93
[2016-05-29] MEDS: PANTOPRAZOLE SODIUM 40 MG/VIAL (PROTONIX) IVP SCH (12:46)
[2016-05-29] MEDS: ENOXAPARIN SODIUM 40 MG/0.4 ML SYRINGE SUBCUT SCH (12:47)
[2016-05-29] MEDS: INSULIN ASPART 100 UNITS/ML, 10 ML VIAL (NovoLOG) SUBCUT PRN (13:03)
--- NOTE | 2016-05-29 13:27 | NUR ---
Notes Patient tolerated clear liquid diet. No acute distress, nausea or vomiting.
[2016-05-29 16:00] VITALS: BP 129/68; PULSE 94; RESP 20; TEMP 97.4; O2SAT 94
--- NOTE | 2016-05-29 17:27 | NUR ---
Notes Patient resting in bed. Denies discomfort. Blood sugar being checked and will be addressed per MD orders.
--- NOTE | 2016-05-29 18:49 | NUR ---
Closing Note Patient needs met throughout shift. Patient denies pain. Able to move onto bedside commode with minimal assistance. Patient having bowel movements throughout shift. Will continue to monitor until patient care is endorsed to oncoming shift nurse.
[2016-05-29 19:45] VITALS: BP 142/79; PULSE 86; RESP 18; TEMP 97.3; O2SAT 92
--- NOTE | 2016-05-29 20:00 | NUR ---
Initial note A/O x 3, no SOB, no chest pain, denied pain. Skin warm to touch, IV at L AC, continued 1/2 NS @ 100 ml/hr. Big healed incision at lower ABD binder in use. Clear lung sounds and active bowel sounds. No edema noted, +2 radial and pedal pulses. Repositioned patient Q2H, patient needed one person assisted to go to BSC. Bed at lowest position, call light within reach, will continue to monitor patient.
--- NOTE | 2016-05-29 22:00 | NUR ---
Rounds A/O x 3, no SOB, no chest pain, denied pain. Skin warm to touch, IV at L AC, continued 1/2 NS @ 100 ml/hr. Repositioned patient Q2H. Bed at lowest position, call light within reach, will continue to monitor patient.
[2016-05-30 00:04] VITALS: BP 134/78; PULSE 91; RESP 18; TEMP 97.6; O2SAT 90
--- NOTE | 2016-05-30 00:15 | NUR ---
Rounds Sleeping/resting, no SOB, no chest pain, no grimacing. IV at L AC, continued 1/2 NS @ 100 ml/hr. Bed at lowest position, call light within reach, will continue to monitor patient.
[2016-05-30] MEDS: PIPERACILLIN/TAZO 3.375/DEX-IS 50 ML IV SCH ×4 (00:29→17:06)
[2016-05-30] MEDS: INSULIN ASPART 100 UNITS/ML, 10 ML VIAL (NovoLOG) SUBCUT PRN ×3 (00:32→11:42)
--- NOTE | 2016-05-30 02:10 | NUR ---
Rounds Sleeping, no SOB, no chest pain, no grimacing. Continued 1/2 NS @ 100 ml/hr IV. Bed at lowest position, call light within reach, will continue to monitor patient.
[2016-05-30 04:13] VITALS: BP 139/77; PULSE 89; RESP 18; TEMP 97.6; O2SAT 92
--- NOTE | 2016-05-30 06:00 | NUR ---
Closing note Sleeping/resting, no SOB, no chest pain, no grimacing. No s/s of hyper or hypoglycemia. Continued 1/2 NS @ 100 ml/hr IV. Bed at lowest position, call light within reach, will give report to incoming nurse.
[2016-05-30 06:24] LABS: ANION GAP 7 (5-15); CALCIUM 8.1 mg/dL (8.4-11.0); CHLORIDE 107 mmol/L (98-107); CREATININE 1.51 mg/dL (0.55-1.30); GLUCOSE 121 mg/dL (70-99); POTASSIUM 3.5 mmol/L (3.5-5.1); SODIUM SERUM 141 mmol/L (136-145); UREA NITROGEN, BLOOD 37 mg/dL (8-21)
[2016-05-30 06:42] LABS: BASOPHILS % (AUTO) 0.6 % (0.0-2.0); EOSINOPHILS # (AUTO) 0.4 K/uL (0.0-0.4); EOSINOPHILS % (AUTO) 8.1 % (0.0-4.0); HEMATOCRIT 29.5 % (36-48); HEMOGLOBIN 9.6 g/dL (12.0-16.0); LYMPHOCYTES # (AUTO) 1.6 K/uL (1.0-5.5); LYMPHOCYTES % (AUTO) 29.2 % (20.5-51.5); MEAN CORPUSCULAR HEMOGLOBIN 28 pg (27-31); MEAN CORPUSCULAR HGB CONC 33 % (32-36); MEAN CORPUSCULAR VOLUME 87 fL (79.0-98.0); MONOCYTES # (AUTO) 0.7 K/uL (0.0-1.0); MONOCYTES % (AUTO) 11.8 % (1.7-9.3); NEUTROPHILS # (AUTO) 2.9 K/uL (1.8-7.7); NEUTROPHILS % (AUTO) 50.3 % (40.0-70.0); PLATELET COUNT (AUTO) 284 K/uL (130-430); RED BLOOD CELL COUNT(AUTO) 3.41 MIL/uL (4.2-6.2); RED CELL DISTRIBUTION WIDTH 13.9 % (9.0-15.0); WHITE BLOOD COUNT (AUTO) 5.6 K/uL (4.8-10.8)
--- NOTE | 2016-05-30 07:25 | NUR ---
Handoff rounds at patient bedside. Patient asleep at this time.
--- NOTE | 2016-05-30 08:45 | NUR ---
Assist to commode.
[2016-05-30] MEDS: 0.45% NACL 1,000 ML IV SCH ×2 (09:24→17:04)
[2016-05-30] MEDS: ENOXAPARIN SODIUM 40 MG/0.4 ML SYRINGE SUBCUT SCH (09:24)
[2016-05-30] MEDS: PANTOPRAZOLE SODIUM 40 MG/VIAL (PROTONIX) IVP SCH (09:24)
--- NOTE | 2016-05-30 09:25 | NUR ---
Rounds and med pass with patient. Assistance clearing unnecessary linen, emesis and wash basin. Given assistance to tie gown. Medication pass for am.
[2016-05-30 10:50] VITALS: BP 151/80; PULSE 84; RESP 18; TEMP 98.2; O2SAT 94
--- NOTE | 2016-05-30 11:45 | NUR ---
Blood sugar check. Patient assist to sit in bedside chair.
[2016-05-30 12:54] VITALS: BP 148/87; PULSE 86; RESP 17; TEMP 95.9; O2SAT 94
--- NOTE | 2016-05-30 13:35 | NUR ---
Needs met at this time. Patient returned to bed after lunch. Says lunch was ok would like to try soft food.
--- NOTE | 2016-05-30 15:09 | NUR ---
Patient rounds. Napping at this time.
[2016-05-30 16:35] LABS: ALANINE AMINOTRANSFERASE 16 U/L (12-78); ALBUMIN 2.8 g/dL (3.4-4.8); ANION GAP 5 (5-15); ASPARTATE AMINOTRANSFERASE 17 U/L (10-37); CHLORIDE 101 mmol/L (98-107); CREATININE 1.37 mg/dL (0.55-1.30); GLUCOSE 135 mg/dL (70-99); POTASSIUM 3.6 mmol/L (3.5-5.1); SODIUM SERUM 136 mmol/L (136-145); TOTAL BILIRUBIN 0.3 mg/dL (0.0-1.0); TOTAL PROTEIN, SERUM 6.1 g/dL (6.4-8.3); UREA NITROGEN, BLOOD 27 mg/dL (8-21)
[2016-05-30 16:36] VITALS: BP 149/80; PULSE 82; RESP 16; TEMP 98.6; O2SAT 96
--- NOTE | 2016-05-30 16:58 | NUR ---
Accucheck within normal limits.
[2016-05-30 17:11] VITALS: BP 149/80; PULSE 82; RESP 16; TEMP 98.6; O2SAT 96
--- NOTE | 2016-05-30 17:15 | NUR ---
MODEL BUILDER DISPLAY assisting patient. Health Information Systems Technician to return for IV fluids and antibiotic.
--- NOTE | 2016-05-30 17:55 | NUR ---
Discharge instructions prepared and given. Patient rounds. Will likely have daugther available this pm about 7:30 PM as she is sleeping late. Filtration Operator thanked patient and students assisted getting patient tea for dinner.
[2016-05-30] MEDS ORDERED: ACETAMINOPHEN 650 MG SUPP.RECT RC PRN (19:00)
--- NOTE | 2016-05-30 19:27 | NUR ---
HANDOFF TO [facility] NURSE WITH REQUEST TO HAVE IV AND ID BAND REMOVED PATIENT AWAITING TRANSPORT WHEN CHILDREN ARE AVAILABLE. TOLERATED 25% OF SOFT DINNER WELL.
--- NOTE | 2016-05-30 20:00 | NUR ---
Discharged patient with stable condition IV DC'd, IV catheter intact, no s/s of infiltration or infection at IV site. Patient tolerated well. ID band removed. Wheeled patient out and assisted to transfer to private vehicle.
--- NOTE | 2016-06-05 10:21 | NUR ---
Discharge Follow Up Phone Call ROOMING HOUSE OPERATOR phoned patient, . On 06/03/16, someone answered who was not a family member and stated that patient was sleeping and that person could not answer questions as to patient's well being. Dairy Hand phoned patient on 06/04/16 and 06/05/16 and left voicemail messages with offer of assistance and Social Service contact information. No further calls will be made.
== END 2016-05-30 20:00 | disposition home or self-care (01) | DRG 390 ==
LOC: SED 15:15 → STU 16:56 → SMU 05-29 22:18
PROVIDERS: ADMIT Internal Medicine; ATTEND Internal Medicine
DX: K56.60 Unspecified intestinal obstruction (principal); N28.1 Cyst of kidney, acquired; E11.9 Type 2 diabetes mellitus without complications; I10 Essential (primary) hypertension; M41.9 Scoliosis, unspecified; E78.5 Hyperlipidemia, unspecified; E86.0 Dehydration; D64.9 Anemia, unspecified; K56.7 Ileus, unspecified; Z93.3 Colostomy status; Z82.3 Family history of stroke; Z80.9 Family history of malignant neoplasm, unspecified; Z79.899 Other long term (current) drug therapy; N28.9 Disorder of kidney and ureter, unspecified
CPT/HCPCS: 36415; 74250-TC; 80048; 80053; 81000-TC; 82962; 83605; 85025; 85610-TC; 85730-TC; 87040-TC; 87081; 96361; 96365; 96375; 99285; C9113; J1650; J1815; J1885; J2405; J2543; J7030; J7060; Q9963